=== PATIENT | male | born 1950 | race African-American/Black ===

== ENCOUNTER 2018-06-25 10:07 | Outpatient (CLI) | payer OTHER, MEDICARE ==
[~2018-06-25] VITALS: Ht 180.3 cm; Wt 78.9 kg
[~2018-06-25 10:07] MED LIST: ACET325T9 PO; AMOX500C PO; BIMA2.5D EACHEYE; BRIM5DRO2 EACHEYE; CHOL10003 PO; CLAR500T PO; LATA2.5D3 OP; LIDOCAINE WITH 8.4% SOD BICARB 3 ML DISP.SYRIN. ONE; PANT20TA2 PO; PROAIR HFA8.5 GM INH; TIMO10DR5 EACHEYE
[2018-06-25 10:24] VITALS: BP 152/91
[2018-06-25 11:09] VITALS: BP 143/82
[2018-06-25 11:19] VITALS: BP 140/75
[2018-06-25 11:29] VITALS: BP 127/79
[2018-06-25 11:39] VITALS: BP 139/86
[2018-06-25 12:17] VITALS: BP 126/84
--- NOTE | 2018-06-25 12:43 | RAD ---
Ultrasound-guided paracentesis 06/25/2018 12:39 PM Procedure: The risks and benefits of the procedure were discussed the patient. Informed consent was obtained. A timeout procedure was performed. Sonographic evaluation of the abdomen was performed demonstrating ascites . The right lower quadrant was prepped and draped using maximum sterile barrier technique. 1% lidocaine without epinephrine was administered for local anesthesia. Real-time ultrasonographic guidance was used in passing a 5 [place] catheter into the fluid collection. 3.6 L of serous ascites was removed. The catheter was removed and pressure held to achieve hemostasis. A sterile dressing was applied. Impression: Successful ultrasound-guided paracentesis
== END 2018-06-25 12:20 | disposition home or self-care (01) ==
LOC: INTRAD 10:07
PROVIDERS: ATTEND Internal Medicine Hematology & Oncology
DX: R18.8 Other ascites (principal)
CPT/HCPCS: 49083